=== PATIENT | male | born 1950 | race Caucasian/White ===

== ENCOUNTER → 2018-05-14 | Outpatient (CLI) | payer MEDICARE ==
[~2018-05-14] MED LIST: ASPI325T25 OR; CLOP75TA28 OR; GADOPENTETATE DIMEGLUMINE (10MMOL/20 ML) VIAL IV ONE; IOHEXOL 300 MG/ML 100ML BOTTLE IJ ONE; LIDOCAINE 2% (LOCAL ANESTH.) PF 5ml SDV ONE; LISI-646 OR; OMEGCAP2 PO; ROSU20TA14 OR; VITAMIN D PO
== END | disposition home or self-care (01) ==
LOC: XY 08:26
DX: M25.511 Pain in right shoulder (principal); I10 Essential (primary) hypertension; E11.9 Type 2 diabetes mellitus without complications; F17.200 Nicotine dependence, unspecified, uncomplicated; I25.10 Atherosclerotic heart disease of native coronary artery without angina pectoris; Z79.82 Long term (current) use of aspirin; Z88.5 Allergy status to narcotic agent
CPT/HCPCS: 76000; A9579; Q9967; J2001